=== PATIENT | female | born 1925 | race Caucasian/White ===

== ENCOUNTER → 2016-04-20 | Outpatient (CLI) | payer OTHER ==
--- NOTE | 2016-04-20 11:38 | DX ---
[facility] Weight-Bearing Pelvis and Frog Lateral View of the Left Hip, 2 Views at 10:14 a.m. Clinical History: 89-year-old female status post left RYNE, for follow up. ICD10 Diagnostic Code: Z09. Comparison Study: Left hip, dated March 31, 2016. Findings: There is stable anatomic alignment of the femoral and the acetabular components. Cortical r etention screws are directed into the left iliac bone. A residual left hip joint effusion is not excl uded. There is no periprosthetic lucency. There is a pelvic tilt, such that the left iliac crest is h igher than the right. The bones are demineralized. Moderate osteoarthritic features of the right hip are noted, and the bones are demineralized. The ischial pubic rami are intact. There is degenerative change at L4-L5 and L5-S1. Impression: No significant interval change since March 31, 2016.
== END ==
LOC: BMCIMAGING 10:01
PROVIDERS: ATTEND Orthopaedic Surgery
DX: Z09 Encounter for follow-up examination after completed treatment for conditions other than malignant neoplasm (principal); Z96.642 Presence of left artificial hip joint

== ENCOUNTER → 2016-06-15 | Outpatient (CLI) | payer OTHER | LOC: BMCIMAGING 13:17 | PROVIDERS: ATTEND Internal Medicine | DX: Z12.39 Encounter for other screening for malignant neoplasm of breast (principal); N63 Unspecified lump in breast; Z85.3 Personal history of malignant neoplasm of breast | CPT/HCPCS: 76641; G0204 ==

== ENCOUNTER → 2016-07-22 | Outpatient (CLI) | payer OTHER | LOC: BMCIMAGING 10:41 | PROVIDERS: ATTEND Orthopaedic Surgery | DX: Z96.642 Presence of left artificial hip joint (principal); M16.11 Unilateral primary osteoarthritis, right hip; M85.80 Other specified disorders of bone density and structure, unspecified site ==